=== PATIENT | female | born 1935 | race Caucasian/White ===

== ENCOUNTER 2023-12-10 10:21 | Emergency (ER) | payer MEDICARE ==
[2023-12-10] MEDS ORDERED: Lidocaine 1% (PF) 30 ML VIAL ONE (10:43)
== END 2023-12-10 11:20 | disposition home or self-care (01) ==
LOC: CSHERS 10:21
DX: S01.81XA Laceration without foreign body of other part of head, initial encounter (principal); I48.91 Unspecified atrial fibrillation; F03.90 Unspecified dementia, unspecified severity, without behavioral disturbance, psychotic disturbance, mood disturbance, and anxiety; Z55.6 Problems related to health literacy; Z86.73 Personal history of transient ischemic attack (TIA), and cerebral infarction without residual deficits; W18.30XA Fall on same level, unspecified, initial encounter
CPT/HCPCS: 12013; J2001